=== PATIENT | female | born 1965 | race Caucasian/White ===

== ENCOUNTER 2023-02-14 12:40 | Emergency (ER) | payer OTHER ==
[2023-02-14 13:05] VITALS: BP 90/50; PULSE 77; RESP 15; TEMP 97.5; BMI 22.4
[2023-02-14] MEDS ORDERED: ONDANSETRON 4 MG TABLET PO ONE (13:19)
[2023-02-14] MEDS ORDERED: ONDANSETRON *ODT* 4 MG TABLET ONE (13:45)
== END 2023-02-14 14:17 | disposition home or self-care (01) ==
LOC: FER 12:40
DX: R51.9 Headache, unspecified (principal); M79.10 Myalgia, unspecified site; R11.0 Nausea; R50.9 Fever, unspecified
CPT/HCPCS: 36415; 70450-TC; 99284-25